=== PATIENT | female | born 1950 | race Caucasian/White ===

== ENCOUNTER → 2021-03-01 | Outpatient (CLI) | payer MEDICARE, OTHER ==
[~2021-03-01] MED LIST: ASMANEX220 MC2 INH; ECOTRIN81 MG PO; EVISTA60 MG PO; LEVOCETIRIZINE D5 MG PO; LEXAPRO10 MG PO; NEURONTIN 400400 MG PO; NORCO 10-325 T1 EACH PO; OMEPRAZOLE40 MG PO; PRINIVIL20 MG PO; PROAIR HFA8.5 GM INH; SINGULAIR10 MG PO; VOLTAREN EC 7575 MG PO; ZANTAC150 MG PO
== END ==
LOC: MAMO 10:53
DX: Z12.31 Encounter for screening mammogram for malignant neoplasm of breast (principal)
CPT/HCPCS: 77063; 77067